=== PATIENT | male | born 1955 | race African-American/Black ===

== ENCOUNTER 2018-02-15 13:09 | Emergency (ER) | payer MEDICARE ==
[~2018-02-15] VITALS: Ht 190.5 cm; Wt 127.0 kg
[~2018-02-15 13:09] MED LIST: ATIVAN0.5 MG ORAL; depakote; prozac; zyprexa
[2018-02-15 14:40] VITALS: BP 140/74
--- NOTE | 2018-02-15 14:44 | Emergency Room Report ---
History of Present Illness General Chief Complaint: Dyspnea/Respdistress Source: Patient Present Illness HPI 62 YO male presents to the ED c/o 62-year-old male presents emergency department complaining of several episodes of feeling short of breath and light headed upon standing intermittently - does not occur every time. Patient reports history of asthma he isn't states that he has been out of his albuterol medication. Patient denies cough denies fevers, chills, headache, palpitations or chest pain. Denies dizziness. Denies weakness in the extremities or paresthesias. Denies trauma/fall or head injury. Patient states he also has increased and anxiousness and believes this may be side effect to his psychiatric medications. Denies claudication, recent travel or surgery/ immobilization. Pt. reports hx of bipolar, HTN and asthma. Allergies: Coded Allergies: No Known Allergies (Unverified , 08/19/12) Patient History Past Medical History: see triage record, HTN, asthma, psych hx Past Surgical History: none Pertinent Family History: none Reviewed Nursing Documentation: PMH: Agreed; PSxH: Agreed Nursing Documentation-PMH Hx Asthma: Yes Review of Systems All Other Systems: negative except mentioned in HPI Physical Exam Vital Signs Date Time Temp Pulse Resp B/P (MAP) Pulse Ox O2 Delivery O2 Flow Rate FiO2 02/15/18 13:10 98.0 98 20 164/91 97 Room Air 98.1 Sp02 EP Interpretation: reviewed, normal General Appearance: no apparent distress, alert, GCS 15, non-toxic Head: normocephalic, atraumatic Eyes: bilateral eye normal inspection, bilateral eye PERRL ENT: hearing grossly normal, normal voice Neck: full range of motion Respiratory: chest non-tender, lungs clear, normal breath sounds, no rhonchi, no respiratory distress, no accessory muscle use, no wheezing, speaking full sentences Cardiovascular #1: normal inspection, regular rate, rhythm, no edema, normal capillary refill Gastrointestinal: non tender, soft Musculoskeletal: back normal, gait/station normal, normal range of motion, non- tender Neurologic: alert, oriented x3, responsive, motor strength/tone normal, sensory intact, normal gait, speech normal, grossly normal Psychiatric: judgement/insight normal, anxious Skin: normal color, no rash, warm/dry, well hydrated Medical Decision Making PA Attestation Dr. Leal is my supervising Physician whom patient management has been discussed with. Diagnostic Impression: Primary Impression: Orthostatic lightheadedness Additional Impression: History of asthma ER Course 62 YO male presents to the ED c/o 62-year-old male presents emergency department complaining of several episodes of feeling short of breath and light headed upon standing intermittently - does not occur every time. Patient reports history of asthma he isn't states that he has been out of his albuterol medication. Patient denies cough denies fevers, chills, headache, palpitations or chest pain. Denies dizziness. Denies weakness in the extremities or paresthesias. Denies trauma/fall or head injury. Patient states he also has increased and anxiousness and believes this may be side effect to his psychiatric medications. Denies claudication, recent travel or surgery/ immobilization. Pt. reports hx of bipolar, HTN and asthma. Ddx considered but are not limited to Asthma exacerbation, DC/ cardiac etiology / arrhythmia, PE Denies recent adjustments to medications or additions. Vital signs: are WNL, pt. is afebrile H&PE are most consistent with possible orthostatic symptoms ORDERS: -EKG: unremarkable - Orthostatic vital signs are positive with increase in heart rate at the threshold of 10 bpm. No significant drop in blood pressure. -- Supine, 140/74, HR 74, Sittin/86, HR 85, standing 120/87, HR 95 ED INTERVENTIONS: None required at this time.- pt. is NAD, mildly anxious, lungs are CTA bilaterally, no LE edema Review medications with this patient he states he is not sure why he is taking Lasix. Patient denies cardiac history he reports at one point did have swelling in the lower extremities however he has not experienced swelling for several months. d/w pt. to follow up with PCP in the mean time will reduce his lasix by half, however he is to continue until d/c'd by his PCP. DISCHARGE: At this time pt. is stable for d/c to home. Will provide printed patient care instructions, and any necessary prescriptions. Care plan and follow up instructions have been discussed with the patient prior to discharge. EKG Diagnostic Results EP Interpretation: Dr. Leal Rate: normal - 87 bpm Rhythm: NSR ST Segments: no acute changes ASA given to the pt in ED: No PA Scribe Text This Interpretation was scribed by MILO Espinal. Last Vital Signs Date Time Temp Pulse Resp B/P (MAP) Pulse Ox O2 Delivery O2 Flow Rate FiO2 02/15/18 13:18 98 20 Room Air 02/15/18 13:10 98.0 164/91 97 98.1 Disposition: HOME, SELF-CARE Condition: Stable Scripts Furosemide* (LASIX*) 20 Mg Tablet 10 MG ORAL DAILY, #14 TAB Prov: Dominga Espinal 02/15/18 Referrals: NON PHYSICIAN (PCP) Patient Instructions: Furosemide tablets, Orthostatic Hypotension, Shortness of Breath, [id number] Additional Instructions: Decrease to half of previous dose of Furosemide, this should be 10mg instead of 20 mg. watch for signs of swelling of the feet, difficulty breathing Follow up with a Primary Care Provider in 3 days, even if your symptoms have resolved. --Please review list of primary care clinics, if you do not already have a primary care provider Return sooner to ED if new symptoms occur, or current symptoms become worse. - Please note that this Emergency Department Report was dictated using [employer] supervisor technology software, occasionally this can lead to erroneous entry secondary to interpretation by the dictation equipment. Dominga Espinal Feb 15, 2018 14:44
[2018-02-15] MEDS ORDERED: FUROSEMIDE20 M1 ORAL (14:45)
[2018-02-15 14:59] VITALS: BP 155/90
--- NOTE | 2018-02-19 16:04 | Cardiology Report ---
APPROVED REPORT EKG Measurement Heart [id number] Normal sinus rhythm Possible Anterior infarct, age undetermined Abnormal ECG
== END 2018-02-15 15:00 | disposition home or self-care (01) ==
LOC: EMR 13:39
DX: R42 Dizziness and giddiness (principal); J45.909 Unspecified asthma, uncomplicated; R06.02 Shortness of breath
CPT/HCPCS: 93005; 99284